=== PATIENT | male | born 1995 | race Hispanic/Latino ===

== ENCOUNTER → 2024-01-29 06:17 | Day surgery (SDC) | payer OTHER, SELFPAY | LOC: GI 06:17 | PROVIDERS: ATTENDING PHYSICIAN Internal Medicine Gastroenterology | DX: K51.00 Ulcerative (chronic) pancolitis without complications (principal); K64.8 Other hemorrhoids | CPT/HCPCS: 45380; 88305 ==

== ENCOUNTER 2024-07-05 11:24 | Emergency (ER) | payer OTHER, SELFPAY ==
[2024-07-05 11:25] VITALS: BP 146/81
--- NOTE | 2024-07-05 12:19 | ED.SKININJ ---
HPI-Injury
<Kenna Bonilla, GUIT[employer] MA[employer] - Last Filed: 07/05/24 17:40>
General
Chief Complaint: Skin Problem
Source: patient
Exam Limitations: none
Time Seen by Provider: 07/05/24 11:58
Nursing documentation reviewed up to this point in time: agreed with
History of Present Illness-Injury
Initial Injury comments:
29 yo male w h/o ulcerative colitis on Entyvio, had right elbow abscess drained 3 days ago and started on Doxycycline 100 mg BID, has had total 4 doses. Here because he thinks the redness is spreading. Denies f/c/n/v. Denies pain, states he feels
the area is improving but notes 'redness' spreading up and down the arm from the site. 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
Past History
<Kenna Bonilla, GU[employer] MA[employer] - Last Filed: 07/05/24 17:40>
Past History
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
ED Past Surgical History: None
Social History
Tobacco: Non-smoker
Alcohol: Occasional
Drug: None
Personal: Single
Living: with family
Employment: Employed
Family History
Family History: Other (Crohn's irritable bowel)
Review of Systems
<Kenna Bonilla, GU[employer] - Last Filed: 07/05/24 17:40>
Review of Systems
Allergies reviewed?: Yes
All Other Systems: ROS reviewed and negative except as documented in HPI and ROS
Constitutional: Denies fever or chills
ABD/GI: Denies nausea or vomiting
Skin: Reports other (small wound right elbow with surrounding 'redness')
Neurological: Denies weakness or numbness
Phy Exam
<Kenna Bonilla, [employer] - Last Filed: 07/05/24 17:40>
Physical Exam
Physical Exam:
GENERAL: No acute distress. A&Ox3.
CONSTITUTIONAL: Afebrile.
RESPIRATORY: Regular respirations, nonlabored, lungs clear.
CARDIOVASCULAR: Regular rate and rhythm, no murmurs, no rubs.
MUSCULOSKELETAL: Full ROM of right elbow. Moves with ease. Well perfused.
SKIN: Warm, dry, normal. There is a small punctate opening at the right elbow tip, there is surrounding brawny light discoloration 1/2 way up and down arm from the opening. No significant tenderness or warmth. Distal n/v intact.
PSYCH: Normal mood and affect. Well kept, interactive and appropriate
NEUROLOGIC: Awake, alert and oriented. No focal neurological deficits
Course
<Kenna Bonilla NP - Last Filed: 07/05/24 17:40>
Vital Signs
Initial and Last Documented VS:
Initial Vital Signs
Temp Pulse Resp BP Pulse Ox
98.0 F 79 16 146/81 98
07/05/24 11:25 07/05/24 11:25 07/05/24 11:25 07/05/24 11:25 07/05/24 11:25
Last Documented Vital Signs
Temp Pulse Resp BP Pulse Ox
98.0 F 79 16 146/81 98
07/05/24 11:25 07/05/24 11:25 07/05/24 11:25 07/05/24 11:25 07/05/24 11:25
Procedures Rn consulted with Physician
Procedures Rn consulted with physician?: Yes
Name of Physician Consulted: Dr. Calvo
<Julianna Calvo MD - Last Filed: 07/05/24 12:28>
Vital Signs
Initial and Last Documented VS:
Initial Vital Signs
Temp Pulse Resp BP Pulse Ox
98.0 F 79 16 146/81 98
07/05/24 11:25 07/05/24 11:25 07/05/24 11:25 07/05/24 11:25 07/05/24 11:25
Last Documented Vital Signs
Temp Pulse Resp BP Pulse Ox
98.0 F 79 16 146/81 98
07/05/24 11:25 07/05/24 11:25 07/05/24 11:25 07/05/24 11:07/05/24 11:25
<Kenna Bonilla [employer] - Last Filed: 07/05/24 17:40>
MDM/Problems Addressed
Differential Diagnosis Includes:
cellulitis, septic joint
MDM/Problems Addressed:
29 yo male w h/o ulcerative colitis on Entyvio, had right elbow abscess drained 3 days ago and started on Doxycycline 100 mg BID, has had total 4 doses. Here because he thinks the redness is spreading. Denies f/c/n/v. Denies pain, states he feels
the area is improving but notes 'redness' spreading up and down the arm from the site. States his fin
Afebrile, totally non toxic appearing.
No sign of septic arthritis
Because pt immunocompromised, Dr. Calvo in to evaluate and recommends adding Keflex 500 mg QID x 5 days.
<Kenna Bonilla [employer] - Last Filed: 07/05/24 17:40>
*Critical Care Note
Total Time (30-74mins, 75-104mins- exclusive of procedures): Not Applicable
ED Attending Note
<Kenna Bonilla [employer] - Last Filed: 07/05/24 17:40>
-
Portions of this chart may have been created with voice recognition software.� Occasional wrong word or��sound alike� substitutions may have occurred due to the inherent limitations of voice recognition software.
<Julianna Calvo MD - Last Filed: 07/05/24 12:28>
ED Attending Note
Patient seen and examined by attending physician: Yes
I performed the substantive portion of visit, reviewed & personally made and approve the management plan that is documented in note by myself or АННА.: Yes
ED Attending Note:
I have seen and evaluated the patient with a [id number] encounter. I have spoken to the [GUITAR MA[employer]ER [employer]] and involved in the medical history, the physical exam, medical decision making.
Evaluation and management service: agree unless noted differently below.
Results interpretation: agree unless noted differently below.
Patient is a 29-year-old man with history of Crohn's on immunosuppressive therapy presenting to the emergency department with a skin infection. Patient states that 3 days ago he went to urgent care to have an elbow abscess drained. They started
him on doxycycline. He states that the swelling has improved though this morning he noticed some streaking down his arm. Per the patient he took him a few days ago and it appears that is slightly spreading. He denies any fevers chills. No
numbness tingling. No weakness. No swelling.
On exam patient is resting comfortably. He does have full range of motion at the elbow. He has very mild discoloration that is reddish-brown from the mid humerus to the mid forearm. It is not warm. It is not swollen. 2+ distal pulses.
29-year-old man presenting to the emergency department with concerns for skin infection after he had a elbow abscess drained. Vitals are notable for being afebrile and normal heart rate. On exam he does not have any swelling or obvious abscess to
the elbow. He does have mild skin changes to the arm. After looking at pictures it appears that some of it may be new though not clearly visualized. He is overall well-appearing. Will add on Keflex for additional coverage. History and exam not
consistent with septic joint or worsening abscess or myositis. We did outline the area of redness. Patient advised to keep an eye out on it. Strict return precautions provided.
Discharge Plan
Departure
Patient Disposition: Home (Routine Discharge)
Date of Disposition: 07/05/24
Time of Disposition: 12:25
Patient with high blood pressure during this ER visit?: No
Condition: Good
Discharge Problem:
Cellulitis of right elbow
Instructions: Cellulitis (Skin Infection), Adult (DC)
Prescriptions:
New
cephalexin 500 mg capsule
500 mg PO QID 5 Days Qty: 20 0RF
No Action
mesalamine 400 mg Capsule (With Del Rel Tablets)
1,600 mg PO TID 30 Days Qty: 360 0RF
prednisone 10 mg Tablet
See Rx Instructions .ROUTE .COMPLEX Qty: 70 0RF
Rx Instructions:
Take By Mouth:
40 mg daily x7 days,
30 mg daily x7 days, 20 mg daily x7 days,
10 mg daily x7 days
Referrals:
Cathi Malave CRNP [Family Provider] - Follow up in 5-7 days
Activity Restrictions/Additional Instructions:
As we discussed, I sent a prescription to your pharmacy for Keflex (Cephalexin) 500 mg to take 4 times a day for 5 days.
See your doctor in 3-5 days if not MUCH improved by then.
Interventions
Interventions:
*Risk Screen - Suicide Last Done: 07/05/24 11:25
*General Assessment Last Done: 07/05/24 12:20
*Neglect/Abuse Screening Last Done: 07/05/24 11:25
*ED- Fall Risk Assessment Last Done: 07/05/24 12:20
*ED COVID-19 Vaccine History Last Done: 07/05/24 12:20
*Nursing Disposition Last Done: 07/05/24 12:34
ED-Skin Assessment Last Done: 07/05/24 12:18
Discharge Date and Time
Discharge Date/Time: 07/05/24 12:41
Print Language: MACANESE
== END 2024-07-05 12:41 | disposition home or self-care (01) ==
LOC: EMR 11:24
PROVIDERS: EMERGENCY PHYSICIAN Student in an Organized Health Care Education/Training Program; FAMILY PHYSICIAN Nurse Practitioner
DX: L03.113 Cellulitis of right upper limb (principal); K50.90 Crohn's disease, unspecified, without complications; Z83.79 Family history of other diseases of the digestive system
CPT/HCPCS: 99282